=== PATIENT | female | born 1970 | race Caucasian/White ===

== ENCOUNTER 2024-05-12 22:20 | Observation (INO) | payer OTHER, SELFPAY ==
[2024-05-12 22:23] VITALS: BP 143/92; PULSE 90; RESP 16; TEMP 36.4; O2SAT 98; BMI 29.3
--- NOTE | 2024-05-12 22:40 | ED_ITS ---
HPI - General Adult General Time Seen by Provider: 22:40 <Julia Henriquez MD - Last Filed: 05/13/24 00:22> Date Seen: 05/12/24 <Julia Henriquez MD - Last Filed: 05/13/24 00:22> Chief complaint: Nausea/Vomiting <Julia Henriquez MD - Last Filed: 05/13/24 00:22> Stated complaint: vomited bright yellow <Julia Henriquez MD - Last Filed: 05/13/24 00:22> Time Seen by Provider: 05/12/24 22:40 <Julia Henriquez MD - Last Filed: 05/13/24 00:22> Source: patient and RN notes reviewed <Julia Henriquez MD - Last Filed: 05/13/24 00:22> Mode of arrival: ambulatory <Julia Henriquez MD - Last Filed: 05/13/24 00:22> Limitations: no limitations <Julia Henriquez MD - Last Filed: 05/13/24 00:22> History of Present Illness HPI narrative: This 54-year-old female is coming in with complaint of nausea and vomiting with dizziness since about 930 tonight. She admits that she has not really felt well, had nausea yesterday but no dizziness. The dizziness tonight is described as a spinning sensation. With that, she had nausea and vomiting, feels better she lies still and closes her eyes. She notes the last couple of days she has just felt really wiped out, no fevers, no specific symptoms other than what is already been stated. She has been napping 2-3 hours when she normally would only take a 1 hour nap. She did throw up once yesterday at work but not the context of dizziness. She has felt spinning vertigo sensation before but that was when she was drunk and is why she does not drink much at all. No headache, no tinnitus, no hearing changes. She notes no visual changes. She has no abdominal pain with this, no constipation or diarrhea. She is on no medications. She has had a tubal ligation, prior left ACL repair. She does smoke, minimal social alcohol use. She will sometimes smoke marijuana but no other illicit substances. She does not go to the doctor often, states she never gets sick. She thinks the last time she was in was probably 3 years ago. There is strong family history of vascular disease including ischemic heart disease and strokes. There is diabetes in the family as well. <Julia Henriquez MD - Last Filed: 05/13/24 00:22> Related Data Home medications: Home Medications ?Medication ?Instructions ?Recorded ?Confirmed No Known Home Medications 05/12/24 05/12/24 <Julia Henriquez MD - Last Filed: 05/13/24 00:22> Allergies/adverse reactions: Allergies Allergy/AdvReac Type Severity Reaction Status Date / Time Penicillins Allergy Hives Verified 05/12/24 22:28 <Julia Henriquez MD - Last Filed: 05/13/24 00:22> Review of Systems Status of ROS: Reports: 6 or more systems reviewed and unremarkable except as noted in History and below <Julia Henriquez MD - Last Filed: 05/13/24 00:22> Exam Const: Vital Signs, click to edit/add: Vital Signs - 24 hr 05/12/24 22:23 05/12/24 23:22 05/12/24 23:23 Temperature 97.6 F Pulse Rate [Pulse Oximeter] 90 74 Respiratory Rate 16 16 Blood Pressure [Ri ght Upper Arm] 143/92 H 136/83 Pulse Oximetry 98 93 92 Oxygen Delivery Me thod Room Air Room Air Patient is lying in the chair in exam room for, has emesis bag with her. Initially she kept her eyes closed but can open them. Pupils are equal round and reactive, extraocular muscles intact but there is definite right beating nystagmus. She has a positive [place] Hallpike maneuver, worse when turning her head to the right. Symmetrical facial function, speech is normal. Neck supple, no adenopathy. Lungs are clear, good air entry, no wheezing crackles. CV regular rate and rhythm, no murmur, normal S1-S2, no S3-S4. Abdomen is soft, nontender, nondistended, no organomegaly. She has no lower extremity edema, strength is 5/5 and symmetric. No dysmetria, no tremor. She has normal sensation throughout. <Julia Henriquez MD - Last Filed: 05/13/24 00:22> Vital Signs, click to edit/add: Vital Signs - 24 hr 05/12/24 22:23 05/12/24 23:22 05/12/24 23:23 Temperature 97.6 F Pulse Rate [Pulse Oximeter] 90 74 Respiratory Rate 16 16 Blood Pressure [Ri ght Upper Arm] 143/92 H 136/83 Pulse Oximetry 98 93 92 Oxygen Delivery Me thod Room Air Room Air <Xu Massey MD - Last Filed: 05/13/24 00:44> Documenting provider has reviewed patient's vital signs: yes <Julia Henriquez MD - Last Filed: 05/13/24 00:22> Course Course ED Course: Patient certainly sounds like she has vertigo tonight but this is complicating couple days of symptoms of not feeling well and vomiting yesterday outside of symptoms of dizziness or vertigo. Will give her IV fluids, 4 mg IV Zofran and 25 mg oral meclizine. Will run this by Neurology briefly. Will order noncontrast head CT to start. She will get a full complement of labs including troponin, will have an EKG done as well. I do not think that this represents central pathology but would like to talk to Neurology on this. <Julia Henriquez MD - Last Filed: 05/13/24 00:22> Reevaluation(s) Time of Reevaluation #2: 00:17 <Xu Massey MD - Last Filed: 05/13/24 00:44> Reevaluation #2: Accepted patient in sign-out from Dr. New. Patient with history of smoking, presents today with nausea vomiting as well as vertigo. Labs independently interpreted by me are reassuring with negative troponin, normal CBC, normal basic panel. Care was discussed with stroke neurology who recommends CT and CTA of the head which is performed, possible MRI in the morning. Patient is outside the window for thrombolytics at this point and unlikely to have large vessel occlusion. <Xu Massey MD - Last Filed: 05/13/24 00:44> Time of Reevaluation #3: 00:39 <Xu Massey MD - Last Filed: 05/13/24 00:44> Reevaluation #3: Reviewed radiology interpretation of CTA of the head neck which is negative, CT scan of the head independently interpreted by me negative for acute findings. Patient recheck, she continues to have some dizziness although he is feeling generally better. She still has nystagmus with right gaze. Patient will be admitted for further evaluation and treatment, MRI in the morning. Paged [facility] for admission. <Xu Massey MD - Last Filed: 05/13/24 00:44> Additional Reevaluation(s): 12:43 a.m. care discussed with Dr. Ramon, hospitalist for admission. <Xu Massey MD - Last Filed: 05/13/24 00:44> Consultations Consultation #1: Reviewed case with Stroke Neurology Dr. Ba. She does recommend that we proceed with CT angio of head neck as well as the CT. 00:16am: Dr. Ba has called back. She does not see any definitive stroke in the brainstem or the cerebellum as a cause of vertigo. She does see small patchy basal ganglia change in states she cannot rule out stroke, recommends 81 mg aspirin an MRI of her brain in the morning. We are still awaiting the radiology formal over-read of her head CT and the CT angiogram of her head neck. <Julia Henriquez MD - Last Filed: 05/13/24 00:22> Time: 10:57 <Julia Henriquez MD - Last Filed: 05/13/24 00:22> Vital Signs Vital signs: Initial Vital Signs Temperature 97.6 F 05/12/24 22:23 Temperature Source Temporal Artery Scan 05/12/24 22:23 Pulse Rate 90 05/12/24 22:23 Respiratory Rate 16 05/12/24 22:23 Blood Pressure 143/92 H 05/12/24 22:23 Blood Pressure Mean 109 H 05/12/24 22:23 Blood Pressure Position Sitting 05/12/24 22:23 Pulse Oximetry 98 05/12/24 22:23 Oxygen Delivery Method Room Air 05/12/24 22:23 Vital Signs Temperature 97.6 F 05/12/24 22:23 Pulse Rate 90 05/12/24 22:23 Respiratory Rate 16 05/12/24 22:23 Blood Pressure 143/92 H 05/12/24 22:23 Pulse Oximetry 98 05/12/24 22:23 Oxygen Delivery Method Room Air 05/12/24 22:23 Temperature 97.6 F 05/12/24 22:23 Pulse Rate 74 05/12/24 23:23 Respiratory Rate 16 05/12/24 23:23 Blood Pressure 136/83 05/12/24 23:23 Pulse Oximetry 92 05/12/24 23:23 Oxygen Delivery Method Room Air 05/12/24 23:23 <Julia Henriquez MD - Last Filed: 05/13/24 00:22> Initial Vital Signs Temperature 97.6 F 05/12/24 22:23 Temperature Source Temporal Artery Scan 05/12/24 22:23 Pulse Rate 90 05/12/24 22:23 Respiratory Rate 16 05/12/24 22:23 Blood Pressure 143/92 H 05/12/24 22:23 Blood Pressure Mean 109 H 05/12/24 22:23 Blood Pressure Position Sitting 05/12/24 22:23 Pulse Oximetry 98 05/12/24 22:23 Oxygen Delivery Method Room Air 05/12/24 22:23 Vital Signs Temperature 97.6 F 05/12/24 22:23 Pulse Rate 90 05/12/24 22:23 Respiratory Rate 16 05/12/24 22:23 Blood Pressure 143/92 H 05/12/24 22:23 Pulse Oximetry 98 05/12/24 22:23 Oxygen Delivery Method Room Air 05/12/24 22:23 Temperature 97.6 F 05/12/24 22:23 Pulse Rate 74 05/12/24 23:23 Respiratory Rate 16 05/12/24 23:23 Blood Pressure 136/83 05/12/24 23:23 Pulse Oximetry 92 05/12/24 23:23 Oxygen Delivery Method Room Air 05/12/24 23:23 <Xu Massey MD - Last Filed: 05/13/24 00:44> Medications Administered Medications: Generic Name Dose Route Start Last Admin Trade Name Freq PRN Reason Stop Dose Admin Sodium Chloride 1,000 mls @ 500 mls/hr 05/12/24 22:48 05/13/24 00:11 0.9 % Sodium Chloride 1000 Ml IV 05/13/24 00:47 Infused .Q2H APRIL Infusion Discontinued Medications Generic Name Dose Route Start Last Admin Trade Name Freq PRN Reason Stop Dose Admin Meclizine HCl 25 mg 05/12/24 22:47 05/12/24 23:05 Meclizine Hcl 25 Mg Tablet PO 05/12/24 22:48 25 mg ONCE ONE Administration Ondansetron HCl 4 mg 05/12/24 22:47 05/12/24 23:06 Ondansetron 2 Mg/Ml Inj IVP 05/12/24 22:48 4 mg ONCE ONE Administration <Julia Henriquez MD - Last Filed: 05/13/24 00:22> Generic Name Dose Route Start Last Admin Trade Name Freq PRN Reason Stop Dose Admin Sodium Chloride 1,000 mls @ 500 mls/hr 05/12/24 22:48 05/13/24 00:11 0.9 % Sodium Chloride 1000 Ml IV 05/13/24 00:47 Infused .Q2H APRIL Infusion Discontinued Medications Generic Name Dose Route Start Last Admin Trade Name Freq PRN Reason Stop Dose Admin Meclizine HCl 25 mg 05/12/24 22:47 05/12/24 23:05 Meclizine Hcl 25 Mg Tablet PO 05/12/24 22:48 25 mg ONCE ONE Administration Ondansetron HCl 4 mg 05/12/24 22:47 05/12/24 23:06 Ondansetron 2 Mg/Ml Inj IVP 05/12/24 22:48 4 mg ONCE ONE Administration <Xu Massey MD - Last Filed: 05/13/24 00:44> Medical Decision Making Lab Data Labs: Lab Results 05/12/24 05/13/24 Range/Units 23:00 00:36 WBC 8.55 (4.50-11.00) K/uL RBC 5.35 H (4.00-5.20) m/uL Hgb 15.8 (12.0-16.0) gm/dL Hct 47.4 (33.0-51.0) % MCV 89 (80-100) fL MCH 30 (26-34) pg MCHC 33 (32-36) gm/dL RDW Coeff of Gila 13.0 (11.5-15.5) % Plt Count 249 (140-440) K/uL Neut % (Auto) 61.9 (42.0-72.0) % Lymph % (Auto) 27.3 (20-44) % [place] % (Auto) 6.7 (0.0-11.0) % Eos % (Auto) 2.8 (0.0-7.0) % Baso % (Auto) 0.5 (0.0-3.0) % Neut # (Auto) 5.30 (1.7-7.0) K/uL Lymph # (Auto) 2.33 (0.90-2.90) K/uL [place] # (Auto) 0.60 (0.00-0.90) K/UL Eos # (Auto) 0.24 (0.00-0.50) K/uL Baso # (Auto) 0.04 (0.00-0.30) K/uL Abs Immat Gran (auto) 0.07 (0.00-0.30) K/uL Imm/Tot Granulo (auto) 0.8 % Sodium 137 (135-149) mmol/L Potassium 3.7 (3.6-5.1) mmol/L Chloride 103 (96-114) mmol/L Carbon Dioxide 25 (20-32) mmol/L Anion Gap 9 (7-15) mEq/L BUN 25 (7-30) mg/dL Creatinine 0.6 (0.5-1.5) mg/dL Estimated Creat Clear 76.10 Estimated GFR 106 ml/min Glucose 145 H (60-115) mg/dL Lactate 1.4 (0.5-1.9) mmol/L Calcium 9.6 (8.4-10.6) mg/dL Magnesium 2.0 (1.5-2.6) mg/dL Total Bilirubin 0.5 (0.1-1.5) mg/dL AST 16 (12-35) U/L ALT 14 (4-35) U/L Alkaline Phosphatase 66 (40-150) U/L Troponin I < 0.01 L (0.01-0.04) ng/mL C-Reactive Protein < 0.5 L (0.5-1.0) mg/dL NT-Pro-B Natriuret Pep 20 pg/mL Total Protein 7.6 (6.0-8.3) g/dL Albumin 4.6 (3.3-5.0) g/dL Lipase 121 (23-300) U/L Lab Acknowledgement Test Added <Julia Henriquez MD - Last Filed: 05/13/24 00:22> Lab Results 05/12/24 05/13/24 Range/Units 23:00 00:36 WBC 8.55 (4.50-11.00) K/uL RBC 5.35 H (4.00-5.20) m/uL Hgb 15.8 (12.0-16.0) gm/dL Hct 47.4 (33.0-51.0) % MCV 89 (80-100) fL MCH 30 (26-34) pg MCHC 33 (32-36) gm/dL RDW Coeff of Gila 13.0 (11.5-15.5) % Plt Count 249 (140-440) K/uL Neut % (Auto) 61.9 (42.0-72.0) % Lymph % (Auto) 27.3 (20-44) % [place] % (Auto) 6.7 (0.0-11.0) % Eos % (Auto) 2.8 (0.0-7.0) % Baso % (Auto) 0.5 (0.0-3.0) % Neut # (Auto) 5.30 (1.7-7.0) K/uL Lymph # (Auto) 2.33 (0.90-2.90) K/uL [place] # (Auto) 0.60 (0.00-0.90) K/UL Eos # (Auto) 0.24 (0.00-0.50) K/uL Baso # (Auto) 0.04 (0.00-0.30) K/uL Abs Immat Gran (auto) 0.07 (0.00-0.30) K/uL Imm/Tot Granulo (auto) 0.8 % Sodium 137 (135-149) mmol/L Potassium 3.7 (3.6-5.1) mmol/L Chloride 103 (96-114) mmol/L Carbon Dioxide 25 (20-32) mmol/L Anion Gap 9 (7-15) mEq/L BUN 25 (7-30) mg/dL Creatinine 0.6 (0.5-1.5) mg/dL Estimated Creat Clear 76.10 Estimated GFR 106 ml/min Glucose 145 H (60-115) mg/dL Lactate 1.4 (0.5-1.9) mmol/L Calcium 9.6 (8.4-10.6) mg/dL Magnesium 2.0 (1.5-2.6) mg/dL Total Bilirubin 0.5 (0.1-1.5) mg/dL AST 16 (12-35) U/L ALT 14 (4-35) U/L Alkaline Phosphatase 66 (40-150) U/L Troponin I < 0.01 L (0.01-0.04) ng/mL C-Reactive Protein < 0.5 L (0.5-1.0) mg/dL NT-Pro-B Natriuret Pep 20 pg/mL Total Protein 7.6 (6.0-8.3) g/dL Albumin 4.6 (3.3-5.0) g/dL Lipase 121 (23-300) U/L Lab Acknowledgement Test Added <Xu Massey MD - Last Filed: 05/13/24 00:44> ECG Data Attestation: I personally reviewed and interpreted this ECG as follows: (Normal sinus rhythm, 72 beats per minute. No ischemic change, QT corrected 444 mil liseconds.) <Julia Henriquez MD - Last Filed: 05/13/24 00:22> Prior ECG tracings: not available for review <Julia Henriquez MD - Last Filed: 05/13/24 00:22> Discharge Plan Discharge Clinical Impression: Vertigo, Smokes cigarettes <Julia Henriquez MD - Last Filed: 05/13/24 00:22> Patient Disposition: Admitted As Observation <Julia Henriquez MD - Last Filed: 05/13/24 00:22>
--- NOTE | 2024-05-12 22:47 | CRLHL7_ITS ---
For Patients: As a result of the Century Cures Act, medical imaging exams and procedure reports are released immediately into your electronic medical record. You may view this report before your referring provider. If you have questions, please contact your health care provider. Indication: Vertigo Technique: Noncontrast CT through the head with multiplanar reformats Comparison: None Findings: Brain: No acute hemorrhage. No acute infarct. No significant mass effect or midline shift. No gross evidence of a mass lesion or cerebral edema. 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 Mild chronic microvascular ischemic disease. Ventricles: No acute abnormality appreciated. Orbits, sinuses, mastoids: No acute abnormality appreciated. Calvarium and soft tissues: No acute abnormality appreciated. Impression: No acute abnormality appreciated. Please note that all CT scans at this facility use dose modulation, iterative reconstruction, and/or weight-based dosing when appropriate to reduce radiation dose to as low as reasonably achievable. Dictated by Neville Todd MD @ 05/13/2024 12:36:38 AM (Electronically Signed)
--- NOTE | 2024-05-12 22:59 | CRLHL7_ITS ---
For Patients: As a result of the Century Cures Act, medical imaging exams and procedure reports are released immediately into your electronic medical record. You may view this report before your referring provider. If you have questions, please contact your health care provider. DATE: 05/13/2024 CLINICAL HISTORY: Patient with vertigo. TECHNIQUE: Standard helical CT image acquisition of the neck up to the skull base after bolus intravenous contrast enhancement. 2D and 3D MIP images for post-processing were performed and interpreted on an independent workstation and 3D images were permanently archived. COMPARISON: CT same day. FINDINGS: The origins of the great vessels from the aortic arch are patent. The origin of the right vertebral artery is patent. The origin of the left vertebral artery is patent. The common carotid arteries are patent. There is no stenosis at the origin of the right internal carotid artery. There is no stenosis at the origin of the left internal carotid artery. The rest of the cervical segments of the internal carotid arteries are patent up to the skull base. The vertebral arteries are codominant. The cervical segments of the vertebral arteries are patent up to the skull base. The visualized lung apices are unremarkable. The thyroid gland is unremarkable. The soft tissues of the neck are unremarkable. There are degenerative changes in the cervical spine. IMPRESSION: Patent cervical vasculature. Please note that all CT scans at this facility use dose modulation, iterative reconstruction, and/or weight-based dosing when appropriate to reduce radiation dose to as low as reasonably achievable. Dictated by Kiersten Becerril MD @ 05/13/2024 2:17:27 PM (Electronically Signed)
--- NOTE | 2024-05-12 22:59 | CRLHL7_ITS ---
For Patients: As a result of the Century Cures Act, medical imaging exams and procedure reports are released immediately into your electronic medical record. You may view this report before your referring provider. If you have questions, please contact your health care provider. DATE: 05/12/2024 CLINICAL HISTORY: Patient with vertigo. TECHNIQUE: Standard helical CT image acquisition through the intracranial circulation following intravenous administration of contrast material with bolus tracking. 2D and 3D MIP images for post-processing were performed and interpreted on an independent workstation and 3D images were permanently archived. COMPARISON: CT same day. FINDINGS: There is no large vessel occlusion. 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 The right internal carotid artery is normal. The right middle cerebral artery and its branches are normal. The right anterior cerebral artery and its branches are normal. The left middle cerebral artery and its branches are normal. The left anterior cerebral artery and its branches are normal. The anterior communicating artery is well visualized and appears normal. The right vertebral artery and PICA are normal. The left vertebral artery and PICA are normal. The vertebral arteries are codominant. The basilar artery is patent and appears normal. The right posterior cerebral artery is normal. The left posterior cerebral artery is normal. The visualized venous structures are patent. IMPRESSION: 1. No large vessel occlusion. 2. 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 Telehealth consultation with [facility]`s Neurointerventional team for enrollment in our long-term brain aneurysm surveillance program can be arranged by calling . Kiersten Becerril M.D. Neurointerventional Radiologist [facility] Pager: Office/Appointments: [facility]: [email or web address] Please note that all CT scans at this facility use dose modulation, iterative reconstruction, and/or weight-based dosing when appropriate to reduce radiation dose to as low as reasonably achievable. Dictated by Kiersten Becerril MD @ 05/13/2024 2:24:00 PM (Electronically Signed)
[2024-05-12] MEDS: 0.9 % SODIUM CHLORIDE 1000 ml 1,000 ML 500 ML IV (23:00)
[2024-05-12] MEDS: MECLIZINE HCL 25 MG TABLET PO (23:05)
[2024-05-12] MEDS: ONDANSETRON 2 MG/ML inj 4 MG IVP (23:06)
[2024-05-12 23:07] LABS: Lactate* 1.4 mmol/L (0.5-1.9)
[2024-05-12 23:14] LABS: Basophils Absolute Auto 0.04 K/uL (0.00-0.30); Basophils Percent Auto 0.5 % (0.0-3.0); Eosinophils Absolute Auto 0.24 K/uL (0.00-0.50); Eosinophils Percent Auto 2.8 % (0.0-7.0); Hematocrit 47.4 % (33.0-51.0); Hemoglobin* 15.8 gm/dL (12.0-16.0); Immature Granulocytes Abs Auto 0.07 K/uL (0.00-0.30); Immature Granulocytes Pct Auto 0.8 %; Lymphocytes Absolute Auto 2.33 K/uL (0.90-2.90); Lymphocytes Percent Auto 27.3 % (20-44); Mean Corpuscular HGB Conc 33 gm/dL (32-36); Mean Corpuscular Hemoglobin 30 pg (26-34); Mean Corpuscular Volume 89 fL (80-100); Monocytes Percent Auto 6.7 % (0.0-11.0); Neutrophils Percent Auto 61.9 % (42.0-72.0); Platelet Count* 249 K/uL (140-440); Red Blood Count 5.35 m/uL (4.00-5.20); White Blood Count* 8.55 K/uL (4.50-11.00)
[2024-05-12 23:16] LABS: Slide Review Reflex No
[2024-05-12 23:22] VITALS: O2SAT 93
[2024-05-12 23:23] VITALS: BP 136/83; PULSE 74; RESP 16; O2SAT 92
[2024-05-12 23:30] LABS: Albumin* 4.6 g/dL (3.3-5.0); Chloride* 103 mmol/L (96-114)
[2024-05-12 23:31] LABS: Potassium* 3.7 mmol/L (3.6-5.1); Sodium* 137 mmol/L (135-149)
[2024-05-12 23:33] LABS: Bilirubin Total* 0.5 mg/dL (0.1-1.5); Creatinine* 0.6 mg/dL (0.5-1.5); Estimated Glomerular Filt Rate 106 ml/min
[2024-05-12 23:34] LABS: Alanine Aminotransferase* 14 U/L (4-35); Alkaline Phosphatase* 66 U/L (40-150); Anion Gap 9 mEq/L (7-15); Aspartate Amino Transferase* 16 U/L (12-35); Blood Urea Nitrogen* 25 mg/dL (7-30); Calcium* 9.6 mg/dL (8.4-10.6); Carbon Dioxide* 25 mmol/L (20-32); Glucose* 145 mg/dL (60-115); Lipase* 121 U/L (23-300); Total Protein* 7.6 g/dL (6.0-8.3)
[2024-05-12 23:38] LABS: C Reactive Protein* < 0.5 mg/dL (0.5-1.0)
[2024-05-12 23:45] LABS: NT Pro B Type NatriureticPept* 20 pg/mL; Troponin I* < 0.01 ng/mL (0.01-0.04)
[2024-05-13 01:03] VITALS: BP 152/87; PULSE 75; RESP 18; TEMP 35.8; O2SAT 98; BMI 25.8
--- NOTE | 2024-05-13 01:51 | W.PM.TELEH&P ---
Telehealth- H&P: HPI History of Present Illness Time Seen by Provider: 01:12 Date Seen: 05/13/24 Chief complaint: woozy and vomiting Narrative: Hilda Johnson is seen as an Interactive Telehealth visit. Hilda Johnson is a 54 year old female with past history remarkable for heavy smoking history who presented to the emergency room tonight after waking from a nap and developing vertigo nausea and vomiting. She vomited about 3 times of bright yellow. This was painless. She has been at her baseline state of health until 2 nights ago while at work she felt woozy and had an episode of vomiting and was sent home. She comments that she has been sleeping more the last 3 days during her naps which are usually an hour but of late they have been lasting 2 to 3 hours. She states that the wooziness that she experienced the other night was not as severe as what she experienced tonight. She has had no prior episodes. She smokes about 1-1/2 to 2 packs of cigarettes a day since she was age 9. She denies any headache or focal weakness. She endorses that it is somewhat better when she is laying in bed and worse when she is up. She is being admitted for concerns for the possibility of central vertigo versus peripheral vertigo. Stroke consult was done in the ER and stroke neurologist recommended an MRI in the a.m. Past medical history: Long history of tobaccoism otherwise unremarkable Past surgical history: Prior knee surgery 3 para 3 fm hixtory: father stroke and in his 60's mother mini strokes Review of Systems Status of ROS: Reports: 10 or more systems reviewed and unremarkable except as noted in History and below Meds Home Medications and Allergies Home Medications ?Medication ?Instructions ?Recorded ?Confirmed ?Type No Known Home Medications 05/12/24 05/12/24 History Allergies Allergy/AdvReac Type Severity Reaction Status Date / Time Penicillins Allergy Hives Verified 05/12/24 22:28 Exam Narrative Exam Narrative: Physical Exam General: Awake alert oriented pleasant cooperative resting comfortably in the hospital bed. Vital signs reviewed HEENT: Atraumatic, sclera nonicteric, smile is symmetric, poor dentition, mucous membranes moist, extraocular muscles are intact with no nystagmus currently. Neck: Supple no carotid bruits, no JVD Cor: Regular rate rhythm without murmurs, soft 2 out of 6 holosystolic murmur heard along the left lower sternal border without radiation Lungs: Good breath sounds no wheezes Abdomen: Soft nontender Extremities: Good distal perfusion Neurologic: Cranial nerves II to XII intact, strength upper and lower extremities 5 out of 5, no nystagmus with extraocular eye muscles, szlxlv-[id number] intact, btrr-bl-npst intact, sensation to light touch intact, gait not tested Const Vital Signs, click to edit/add: Vital Signs - 24 hr 05/12/24 22:23 05/12/24 23:22 05/12/24 23:23 Temperature 97.6 F Pulse Rate [Pulse Oximeter] 90 74 Respiratory Rate 16 16 Blood Pressure [Right Upper Arm] 143/92 H 136/83 Pulse Oximetry 98 93 92 Oxygen Delivery Method Room Air Room Air Hospitalist - H&P: Result Labs Labs: Short CBC Laboratory Results - last 24 hr 05/12/24 05/13/24 23:00 00:36 WBC 8.55 RBC 5.35 H Hgb 15.8 Hct 47.4 MCV 89 MCH 30 MCHC 33 RDW Coeff of Gila 13.0 Plt Count 249 Neut % (Auto) 61.9 Lymph % (Auto) 27.3 [place] % (Auto) 6.7 Eos % (Auto) 2.8 Baso % (Auto) 0.5 Neut # (Auto) 5.30 Lymph # (Auto) 2.33 [place] # (Auto) 0.60 Eos # (Auto) 0.24 Baso # (Auto) 0.04 Abs Immat Gran (auto) 0.07 Imm/Tot Granulo (auto) 0.8 Sodium 137 Potassium 3.7 Chloride 103 Carbon Dioxide 25 Anion Gap 9 BUN 25 Creatinine 0.6 Estimated Creat Clear 76.10 Estimated GFR 106 Glucose 145 H Lactate 1.4 Calcium 9.6 Magnesium 2.0 Total Bilirubin 0.5 AST 16 ALT 14 Alkaline Phosphatase 66 Troponin I < 0.01 L C-Reactive Protein < 0.5 L NT-Pro-B Natriuret Pep 20 Total Protein 7.6 Albumin 4.6 Lipase 121 TSH 1.500 Lab Acknowledgement Test Added Imaging CT scan - head: Attestation: I have reviewed the pertinent imaging results. Radiologist's impression: Unenhanced head ct and cta head and neck interpreted as negative for acute disease Assessment and Plan Assessment and plan (1) Vertigo: Status: Acute (2) Nausea and vomiting: Status: Acute (3) Smokes cigarettes: Status: Acute Plan 54-year-old woman with long history of tobaccoism who presents with nausea vomiting and vertigo tonight. She had similar events but not as intense 2 nights ago. Neurologic exam is benign no current nystagmus. Head imaging CT unenhanced and CTA showed no acute disease. Symptoms are worse when she is up and better when she is laying down. I suspect the disease is most likely benign positional vertigo however agree with the plan to keep her overnight observation and prophylaxis with aspirin and get an MRI in the morning to rule out the possibility of central vertigo. 1: Benign positional vertigo 2: Nausea and vomiting 3. History of tobaccoism Plan 1.overnight observation 2. Baby aspirin daily till ruled out 3. MRI in the morning 4. Ondansetron as needed if needed for nausea 5. Nicotine patch 6. Encourage and support smoking cessation 7. Long conversation with the patient about CODE STATUS and she is adamant she wants to be DN Telehealth: Statement Statement Telehealth Visit: Today's History and Physical is provided via interactive telehealth by Eron Ramon MD.? Patient is located at [facility].? Provider is located at [facility].? Nursing staff assisted with the patient's exam. The visit being done today meets criteria for a telehealth visit and the patient or patient?s parent/guardian is aware the visit is a telehealth visit. Camera Start Time: 01:12 Camera End Time: 01:32
[2024-05-13 02:13] VITALS: PULSE 69
--- NOTE | 2024-05-13 02:17 | CRLHL7_ITS ---
For Patients: As a result of the Cures Act, medical imaging exams and procedure reports are released immediately into your electronic medical record. You may view this report before your referring provider. If you have questions, please contact your health care provider. Indication: Vertigo Technique: Multiplanar, multisequence MRI of the brain obtained without contrast. Comparison: Same-day CT head Findings: No evidence for recent hemorrhage or infarct. No midline shift, hydrocephalus or herniation. Chronic lacunar infarct at the right basal ganglia. Scattered FLAIR hyperintense foci throughout the supratentorial white matter, typical of chronic microangiopathy. No suspicious susceptibility. Unremarkable midline structures. Preserved major expected intracranial flow voids. Unremarkable bone marrow signal. No obstructive paranasal sinus disease or significant mastoid effusion. Unremarkable orbits. Impression: 1. No evidence of acute intracranial abnormality. 2. Chronic right basal ganglia lacunar infarct and mild chronic microangiopathy changes. Dictated by Alejandra Johnson MD @ 05/13/2024 11:55:51 AM (Electronically Signed)
--- NOTE | 2024-05-13 05:57 | PC.NURSE ---
End of shift [id number]: Admitted to unit at 0100 with nausea/vomiting and dizziness. Patient reports intermittent nausea and vomiting x 2 days and new onset vertigo which caused emesis. Currently denies any nausea or vomiting but does report vertigo when going from laying to sitting, patient able to stop vertigo when laying still. Neuro assessment completed and intact. Denies any pain or SOB. Independent with transfers and ambulation.
[2024-05-13 07:26] VITALS: BP 132/87; PULSE 73; RESP 20; TEMP 36.4; O2SAT 95
[2024-05-13] MEDS: SODIUM CHLORIDE 0.9 % (FLUSH) 10 ML SYRINGE 5 ML IVF (08:41)
[2024-05-13 09:03] VITALS: PULSE 65
[2024-05-13 11:00] VITALS: BP 128/82; PULSE 74; RESP 20; TEMP 36.6; O2SAT 96
--- NOTE | 2024-05-13 12:44 | PM.DS1 ---
DS: Providers Provider Date Seen: 05/13/24 Date of admission: 05/13/24 00:57 Primary care physician: Morelia Yepez PA-C Admitting Clinician: Eron Ramon MD Attending Physician on discharge: Antonino Lomas MD Date of Discharge: 05/13/24 DS: Diagnosis Discharge Diagnosis (1) Nausea and vomiting: Status: Acute Problem details: Episodes of vomiting May 11 while at work and May 12 associated with vertigo. Now resolved in eating normally. (2) Vertigo: Status: Acute Problem details: Suspect episode of benign vertigo. Glenmont-Hallpike and Otolith repositioning maneuvers produced no symptoms and no benefit. (3) Smokes cigarettes: Status: Acute Problem details: Strongly urged smoking cessation to prevent future complications of stroke, cancer, heart disease. (4) Ataxia: Status: Acute Problem details: Patient gives a history of longstanding poor balance. She uses furniture and ruth schmitz to help with balance at home. Physical therapy here notes that she has poor balance. Referred to outpatient therapy. (5) Stroke: Status: Acute Problem details: MRI from 05/13/2020 for shows chronic right basal ganglia lacunar infarct Aspirin 81 mg, rosuvastatin, stop smoking, outpatient follow-up, DS: Summary Hospital Course Hospital Course: 54-year-old female admitted to the hospital with an episode of vertigo and vomiting the evening prior to admission. She had also had an episode of vomiting the day before that fall at work. She had no other symptoms of illness. She had a frontal headache yesterday which has resolved. No history of chronic headaches or migraines. No change in hearing or unilateral hearing loss or abnormal noise in her ears. No visual disturbance, focal numbness or weakness, fever, cough, chest pain, palpitations, abdominal pain, diarrhea, melena or hematochezia. Emesis was clear yellow fluid without blood or coffee-ground appearance. Patient also reports longstanding history of poor balance. For more than a year she has been holding onto schmitz and furniture when she walks. She reports that she has otherwise been feeling well except for this last day. Patient reports otherwise being healthy. [facility] records indicate a history of mental health problems and dyslipidemia. Patient is currently not a undergoing treatment for these problems. Patient has had CT head, CTA head and neck, MRI of her brain showing an old right basal ganglia stroke and small vessel ischemic changes on MRI but no other significant intracranial abnormalities and no large vessel occlusions/stenosis. Physical therapy evaluation showed that she is unable to stand on 1 leg and has some poor balance. Status at Discharge Functional status at discharge: independent ambulation Overall status at discharge: patient is progressing back to baseline Time Spent with Patient Time attestation: Total time spent providing and/or coordinating discharge services: 70 minutes Time spent: Greater than 30 minutes Exam Narrative: Exam Narrative: She is alert and appears in no distress. She gives her own history. Speech is fluent. Cranial nerves 2-12 intact. Neck is supple without mass or adenopathy. Palpation of her head is nontender. Respirations are clear to auscultation. Cardiovascular: S1, S2, regular rate and rhythm. No murmur gallop or rub. Abdomen: Bowel sounds active. Abdomen is soft without tenderness or mass. She has intact strength in all 4 extremities at 5/5. Intact peripheral pulses. No rash. Cxkdyi-kens-svkyza and heel-murrieta are normal. Const: Vital Signs, click to edit/add: Vital Signs - 24 hr 05/12/24 22:23 05/12/24 23:22 05/12/24 23:23 Temperature 97.6 F Pulse Rate Pulse Rate [Pulse Oximeter] 90 74 Respiratory Rate 16 16 Blood Pressure [Ri ght Arm] Blood Pressure [Ri ght Upper Arm] 143/92 H 136/83 Pulse Oximetry 98 93 [facility] Room Air 05/13/24 01:03 05/13/24 01:03 05/13/24 02:13 Temperature 96.4 F L Pulse Rate 69 Pulse Rate [Pulse Oximeter] 75 Respiratory Rate 18 18 Blood Pressure [Ri ght Arm] 152/87 H Blood Pressure [Ri ght Upper Arm] Pulse Oximetry 98 98 Oxygen Delivery Fl thod Room Air Room Air 05/13/24 07:26 05/13/24 07:26 05/13/24 09:03 Temperature 97.5 F L Pulse Rate 65 Pulse Rate [Pulse Oximeter] 73 73 Respiratory Rate 20 20 Blood Pressure [Ri ght Arm] 132/87 Blood Pressure [Ri ght Upper Arm] Pulse Oximetry 95 [facility] 05/13/24 11:00 Temperature 98 F Pulse Rate Pulse Rate [Pulse Oximeter] 74 Respiratory Rate 20 Blood Pressure [Ri ght Arm] 128/82 Blood Pressure [Ri ght Upper Arm] Pulse Oximetry 96 Oxygen Delivery Me thod Room Air Documenting provider has reviewed patient's vital signs: yes DS: Data Data Completed and Pending Labs on day of discharge: Labs from last 24 hours 05/13/24 05/12/24 00:36 23:00 WBC 8.55 RBC 5.35 H Hgb 15.8 Hct 47.4 MCV 89 MCH 30 MCHC 33 RDW Coeff of Gila 13.0 Plt Count 249 Neut % (Auto) 61.9 Lymph % (Auto) 27.3 Weber % (Auto) 6.7 Eos % (Auto) 2.8 Baso % (Auto) 0.5 Neut # (Auto) 5.30 Lymph # (Auto) 2.33 Weber # (Auto) 0.60 Eos # (Auto) 0.24 Baso # (Auto) 0.04 Abs Immat Gran (auto) 0.07 Imm/Tot Granulo (auto) 0.8 Sodium 137 Potassium 3.7 Chloride 103 Carbon Dioxide 25 Anion Gap 9 BUN 25 Creatinine 0.6 Estimated Creat Clear 76.10 Estimated GFR 106 Glucose 145 H Lactate 1.4 Calcium 9.6 Magnesium 2.0 Total Bilirubin 0.5 AST 16 ALT 14 Alkaline Phosphatase 66 Troponin I < 0.01 L C-Reactive Protein < 0.5 L NT-Pro-B Natriuret Pep 20 Total Protein 7.6 Albumin 4.6 Lipase 121 TSH 1.500 Lab Acknowledgement Test Added Imaging MRI - head: Radiologist's impression: Indication: Vertigo Technique: Multiplanar, multisequence MRI of the brain obtained without contrast. Comparison: Same-day CT head Findings: No evidence for recent hemorrhage or infarct. No midline shift, hydrocephalus or herniation. Chronic lacunar infarct at the right basal ganglia. Scattered FLAIR hyperintense foci throughout the supratentorial white matter, typical of chronic microangiopathy. No suspicious susceptibility. Unremarkable midline structures. Preserved major expected intracranial flow voids. Unremarkable bone marrow signal. No obstructive paranasal sinus disease or significant mastoid effusion. Unremarkable orbits. Impression: 1. No evidence of acute intracranial abnormality. 2. Chronic right basal ganglia lacunar infarct and mild chronic microangiopathy changes. Discharge Plan Discharge Disposition: Home, Self-Care Date of Admission: 05/13/24 00:57 Attending Provider on Discharge: Jensen Lomas Primary Care Provider: Morelia Yepez Condition: Improved Anticipated Discharge Date/Time: 05/13/24 18:00 Discharge Medications: New rosuvastatin 20 mg tablet 20 mg PO DAILY Qty: 30 2RF aspirin 81 mg tablet,delayed release (DR/EC) 81 mg PO DAILY Qty: 100 2RF ondansetron 8 mg tablet,disintegrating 8 mg PO Q8H PRNQty: 15 0RF Discharge Orders: Discharge Order (Routine); Ordered 05/13/24 Ordered By: Jensen Lomas Additional Instructions: Outpatient physical therapy evaluation and treatment. Activity Level: Activity as Tolerated Discharge Diet: Heart Healthy (2 gm sodium, low fat) Follow Up Appointments: Morelia Yepez, PA-C [Primary Care Provider] - (Follow-up in 1 week) Forms: Cupple Info Instructions
[2024-05-13 14:02] LABS: Cholesterol* 308 mg/dL (90-199); HDL Cholesterol* 42 mg/dL (>=50); LDL Cholesterol Calculated 213 mg/dL (<100); Triglycerides* 267 mg/dL (40-149)
[2024-05-13 15:00] VITALS: BP 138/86; PULSE 81; RESP 20; TEMP 36.6; O2SAT 97
--- NOTE | 2024-05-13 15:16 | PC.NURSE ---
End of Shift: Patient pleasant and cooperative. Patient vitally stable, lungs clear, BS WNL, IV SL and intact. Patient denies pain and nausea, but does report dizziness with movement, she explains she can not focus her eyes. Patient independent in room. Patient tolerating regular diet but did have one emesis after working with therapy, and taking a bite of her husbands guyanese santana, 600ml. Patient urinating well, no BM. Patient has only had breakfast.
--- NOTE | 2024-05-13 18:21 | PC.NURSE ---
Patient ate 50% of her meal at about 1600. Did so without nausea. Up ambulating in the room without dizziness. Pt still states that she feels a little unsteady when up, however feels ready for discharge. IV removed from right arm. Tele taken off. discharge instructions given to patient and . All questions were answered and forms were signed. Pt escorted to front entrance via wheelchair by nursing staff.
== END 2024-05-13 18:08 | disposition home or self-care (01) ==
LOC: ED 05-13 00:40 → MEDSURG 05-13 00:58
PROVIDERS: Family Medicine; Admitting Provider Internal Medicine; Emergency Provider Family Medicine; PCP Physician Assistant Medical; Visit Provider Internal Medicine
DX: R42 Dizziness and giddiness (principal); R11.10 Vomiting, unspecified; R11.0 Nausea; F17.210 Nicotine dependence, cigarettes, uncomplicated; Z86.73 Personal history of transient ischemic attack (TIA), and cerebral infarction without residual deficits; R51.9 Headache, unspecified; E78.5 Hyperlipidemia, unspecified; F10.90 Alcohol use, unspecified, uncomplicated; Z82.3 Family history of stroke; Z82.49 Family history of ischemic heart disease and other diseases of the circulatory system
CPT/HCPCS: 36415; 70450; 70496; 70498; 70551; 80053; 80061; 83036; 83605; 83690; 83735; 83880; 84443; 84484; 85025; 86140; 93005; 94761; 96361; 96374; 97112; 97161; 97165; 99285; G0378; A9270; J2405; J7030; Q9967

== ENCOUNTER 2024-05-28 12:43 | Emergency (ER) | payer OTHER, SELFPAY ==
--- NOTE | 2024-05-28 12:49 | ED_ITS ---
HPI - General Adult General Time Seen by Provider: 13:01 Date Seen: 05/28/24 Chief complaint: Abdominal Pain Stated complaint: RT sided sharp abdominal pain Time Seen by Provider: 05/28/24 12:49 Source: patient, family, RN notes reviewed and old records reviewed Mode of arrival: ambulatory Limitations: no limitations History of Present Illness HPI narrative: This 54-year-old female is coming in with right-sided abdominal pain. Started yesterday morning, she awoke with it. It is painful with movement. No trauma. She has not had any nausea vomiting or diarrhea, last normal bowel movement was yesterday. She did eat some peanut butter cookies this morning about 10:00 a.m., has not noticed any change her appetite and no change with eating. She has no urinary symptoms. Her bowel movement was normal yesterday. Her only abdominal surgery was a tubal ligation. She has no history of bowel obstruction. She was recently in with peripheral vertigo but was diagnosed with a prior basal ganglia CVA based on MRI. She has not had any recent medical care prior to that, states she has a known growth on her uterus that was supposed to be removed. She was also supposed to have a colonoscopy. She states that she just went [facility] in canceled those procedures. She is wondering if this has something to do with a growth on her uterus. She denies any postmenopausal vaginal bleeding. She is never had a colonoscopy before. She denies any blood in her stools historically or currently. Related Data Previous Rx's ?Medication ?Instructions ?Recorded aspirin 81 mg tablet,delayed 81 mg PO DAILY #100 tabs 05/13/24 release ondansetron 8 mg disintegrating 8 mg PO Q8H PRN #15 tabs 05/13/24 tablet rosuvastatin 20 mg tablet 20 mg PO DAILY #30 tabs 05/13/24 Allergies Allergy/AdvReac Type Severity Reaction Status Date / Time Penicillins Allergy Hives Verified 05/12/24 22:28 Review of Systems Status of ROS: Reports: 6 or more systems reviewed and unremarkable except as noted in History and below [facility] Medical History Uterine fibroid ?D25.9 - Leiomyoma of uterus, unspecified (ICD-10) Ataxia ?R27.0 - Ataxia, unspecified (ICD-10) Stroke ?I63.9 - Cerebral infarction, unspecified (ICD-10) Surgical History Hx of arthroscopic knee surgery ?Z98.890 - Other specified postprocedural states (ICD-10) H/O tubal ligation ?Z98.51 - Tubal ligation status (ICD-10) Social History What is your current living situation?: I presently have a place to live Problems where you live: no known problems Problems where you live details: NA In the past 12 months, utilities in danger of being shut off: no In past 12 months, lack of transportation kept you from medical appts, meetings, work, or getting things needed for daily living: no In the past 12 mos, have been you worried that your food would run out before you had money to buy more?: never true In the past 12 mos, the food you bought just didn't last and you didn't have money to buy more?: never true Highest level of school completed/degree received: GED or equivalent Smoking Status: Current every day smoker What tobacco products do you use: cigarettes Smoking packs per day: 2 Smoking cigarettes per day: 40.0 How often do you have a drink containing alcohol: monthly or less How many standard drinks containing alcohol do you have on a typical day: 1 or 2 How often do you have six or more drinks on one occasion: Never AUDIT-C Alcohol total score: 1 Non-prescribed substance use: marijuana (any form) Non-prescribed substance use details: occasional marijuana Caffeine: No How often does anyone, including family, friends and others, physically hurt you : never How often does anyone, including family, friends and others, insult or talk down to you: never How often does anyone, including family, friends and others, threaten you with harm: never How often does anyone, including family, friends and others, scream or curse at you: never service: No Exam Const: Vital Signs, click to edit/add: Vital Signs - 24 hr 05/28/24 12:50 05/28/24 13:20 05/28/24 16:02 Temperature 96.7 F L Pulse Rate [Pulse Oximeter] 81 76 79 Respiratory Rate 18 18 18 Blood Pressure [Ri ght Upper Arm] 121/74 126/75 135/85 Pulse Oximetry 98 100 96 Oxygen Delivery Me thod Room Air Room Air Room Air Earl is alert, interactive, no apparent distress. Very pleasant 54-year-old female. Sitting up does seem to cause her some pain in her right side. Pupils are equal round reactive, sclera clear, extraocular muscles intact, no nystagmus. Some of her dentition is missing but otherwise oral mucosa without any evidence of acute mucosal changes, appears to be well-hydrated. Her speech is normal. Neck is supple, no jugular venous distension, no masses. Lungs are clear, good air entry, no wheezing or crackles, no tachypnea. CV regular rate and rhythm, no murmur, normal S1-S2, no S3-S4. Abdomen is soft, she maybe has some mild mid very lateral abdominal pain, difficult goal to say if this is abdominal wall but do not feel any underlying masses. There is certainly no rebound or guarding. Bowel sounds are present. Patient was ambulatory into the ED of her own accord. Documenting provider has reviewed patient's vital signs: yes Course Course ED Course: This patient appears to have a uterine fibroid per her chart records and only other abdominal surgery is a tubal ligation. She still has her appendix, could be urinary system with kidney stone. Overall she seems to be comfortable and does seem to have increased pain with position changes. I do wonder if this could be musculoskeletal. Certainly with her minimal medical care as of late, do think we should proceed with CT abdomen imaging. She has never had a colonoscopy, could have an occult colon mass. The CT imaging as well as a full complement of labs will be obtained for full diagnostic evaluation. Urinalysis is already been obtained. Her creatinine and kidney function was just normal back at the end of April. She declines anything for pain at this time. She is not having any nausea. Of note she does appear to be glucose intolerant with a hemoglobin A1c of 6% during her hospitalization for her recent peripheral vertigo at the end of April. Reevaluation(s) Time of Reevaluation #1: 15:35 Reevaluation #1: Did review with Earl the CT findings. She has probably area on the cecum of epiploic appendagitis. Did my best to explain this to her. She will have a short interval follow-up with the surgeon tomorrow. We did review the secondary findings of the left renal mass that is concerning for renal cell carcinoma, underlying kidney stones. I did have to take leave to take the phone call from Urology but did follow-up with her. By the time I was back in to see her, urology at already called her. She will be seeing Dr. Valentino Gutiérrez on June 18 at 11:10 a.m. in [place] at [address] images had already been pushed up to [facility]. Consultations Consultation #1: Have reviewed this with the general surgeon Dr. Marie. She did review the CT. She would like to see the patient in short follow-up, have called the clinic in spoken with Negrita WHITE. They will see her, check-in time at 2:00 p.m.. Negrita is aware to order a CBC and CRP for the surgeon for tomorrow. Time: 15:31 Consultation #2: Did speak with Dr. Pop from [facility] on-call. They will get this patient in to Urology, the kidney stone as well as this lesion which has a high chance of being a renal cell carcinoma will be addressed. They will get him to 1 of the partners that does do partial nephrectomy. They will contact her outpatient. Time: 15:40 Vital Signs Vital signs: Initial Vital Signs Temperature 96.7 F L 05/28/24 12:50 Temperature Source Temporal Artery Scan 05/28/24 12:50 Pulse Rate 81 05/28/24 12:50 Pulse Rhythm Regular 05/28/24 12:50 Respiratory Rate 18 05/28/24 12:50 Blood Pressure 121/74 05/28/24 12:50 Blood Pressure Mean 89 05/28/24 12:50 Blood Pressure Position Supine 05/28/24 12:50 Pulse Oximetry 98 05/28/24 12:50 Oxygen Delivery Method Room Air 05/28/24 12:50 Vital Signs Temperature 96.7 F L 05/28/24 12:50 Pulse Rate 81 05/28/24 12:50 Respiratory Rate 18 05/28/24 12:50 Blood Pressure 121/74 05/28/24 12:50 Pulse Oximetry 98 05/28/24 12:50 Oxygen Delivery Method Room Air 05/28/24 12:50 Temperature 96.7 F L 05/28/24 12:50 Pulse Rate 79 05/28/24 16:02 Respiratory Rate 18 05/28/24 16:02 Blood Pressure 135/85 05/28/24 16:02 Pulse Oximetry 96 05/28/24 16:02 Oxygen Delivery Method Room Air 05/28/24 16:02 Medical Decision Making Lab Data Lab results reviewed: Yes I reviewed the patient's lab results Labs: Lab Results 05/28/24 05/28/24 Range/Units 13:00 13:35 WBC 9.82 (4.50-11.00) K/uL RBC 4.62 (4.00-5.20) m/uL Hgb 13.5 (12.0-16.0) gm/dL Hct 41.1 (33.0-51.0) % MCV 89 (80-100) fL MCH 29 (26-34) pg MCHC 33 (32-36) gm/dL RDW Coeff of Gila 12.5 (11.5-15.5) % Plt Count 166 (140-440) K/uL Neut % (Auto) 67.9 (42.0-72.0) % Lymph % (Auto) 20.7 (20-44) % Barrow % (Auto) 8.7 (0.0-11.0) % Eos % (Auto) 2.3 (0.0-7.0) % Baso % (Auto) 0.3 (0.0-3.0) % Neut # (Auto) 6.67 (1.7-7.0) K/uL Lymph # (Auto) 2.03 (0.90-2.90) K/uL Barrow # (Auto) 0.90 (0.00-0.90) K/UL Eos # (Auto) 0.23 (0.00-0.50) K/uL Baso # (Auto) 0.03 (0.00-0.30) K/uL Abs Immat Gran (auto) 0.01 (0.00-0.30) K/uL Imm/Tot Granulo (auto) 0.1 % Lactate 1.3 (0.5-1.9) mmol/L Direct Bilirubin 0.4 (0.0-0.5) mg/dL C-Reactive Protein 4.8 H (0.5-1.0) mg/dL Lipase 83 (23-300) U/L Urine Color Yellow (Yellow) Urine Appearance Clear (Clear) Urine pH 6.0 (5.0-8.5) Ur Specific Severance 1.025 (1.000-1.030) Urine Protein Negative (Negative) Urine Glucose (UA) Negative (Negative) Urine Ketones Negative (Negative) Urine Blood 2+ A (Negative) Urine Nitrite Negative (Negative) Urine Bilirubin Negative (Negative) Urine Urobilinogen 0.2 (0.2-1.0) Ur Leukocyte Esterase Negative (Negative) Urine RBC 10-25 A (0-2) Urine WBC 2-5 (0-5) Ur Squamous Epith Cells Few (None-Few) Urine Bacteria Few A (None) Urine Mucus Few A (None) Imaging Data CT scan - abdomen: Attestation: I have reviewed the pertinent imaging results. Radiologist's impression: Patient: EARL AUSTIN Facility:?[facility] Patient ID:?[id number] Site Patient ID:?[id number]. Site :?[id number] Study:?CT-Abdomen/Pelvis W ISOVUE 370-05/28/2024 2:10:57 PM Ordering Physician:Leroy Dumont Final Report: INDICATION: Right-sided abdominal pain. TECHNIQUE: CT abdomen and pelvis acquired with 100 cc Isovue 370 IV contrast. COMPARISON: CT abdomen and pelvis 10/17/2013. FINDINGS: Lower chest: Unremarkable. Liver: Unremarkable. Normal in size and attenuation. No suspicious masses. Gallbladder and bile ducts: Unremarkable. No stones or inflammation. No biliary dilatation. Pancreas: Unremarkable. No mass or inflammation. Spleen: Unremarkable. Normal in size. No masses. Adrenal glands: Unremarkable. No nodules. Kidneys: Bilateral nonobstructing nephroliths, the largest in the inferior pole of the left kidney measuring 1.5 x 1.4 centimeters (2/60) left subcentimeter hypodense lesions, likely cysts. Left extrarenal pelvis. There is a left upper pole enhancing renal mass measuring 2 x 2 by 1.9 centimeters (2/36, 4/100), new compared to prior. GI tract: No obstruction. Vasculature: Mild aortoiliac atherosclerosis. Mesenteric arteries are patent. Lymph nodes: No lymphadenopathy. Peritoneum/Abdominal Wall: Soft tissue stranding along the distal cecum/ascending colon with a hyperdense focus within the area of stranding (05/28/2024). Pelvis: Enlarged fibroid uterus, which is increased in size when compared to 10/17/2013 Bones: Unremarkable for age. IMPRESSION: Soft tissue stranding along the distal cecum/ascending colon with a hyperdense focus within this area of soft tissue stranding, likely epiploic appendagitis with central vascular pedicle. Cecal diverticulitis is less likely considering lack of diverticula elsewhere. Left upper pole enhancing renal mass, concerning for renal cell carcinoma. Please note that all CT scans at this facility use dose modulation, iterative reconstruction, and/or weight-based dosing when appropriate to reduce radiation dose to as low as reasonably achievable. Dictated by More Roach MD @ 05/28/2024 2:37:13 PM (Electronic Signature) Discharge Plan Discharge Clinical Impression: Epiploic appendagitis, Kidney calculi, Asymptomatic microscopic hematuria, Left kidney mass Patient Disposition: Home, Self-Care Condition: Stable Instructions: Kidney Stones (ED), Hematuria (ED), Epiploic Appendagitis (ED) Additional Instructions: Can use Tylenol or ibuprofen per bottle directions as needed for pain. Patient sometimes can develop fever with epiploic appendagitis. If you have any conc erns with her status, please seek re-evaluation in the interim. Otherwise, you will have a follow-up appointment with check-in time at 2:00 p.m. at [facility] where you will see Dr. Marie. Expect to have blood drawn at that visit as well for recheck. Your urology appointment will be on June 18 at 11:[address] Valentino Gutiérrez, [address] [facility] in [place]. Highly encourage you to work on smoking cessation, schedule a clinic appointment with 1 of the primary care providers for further assistance on this if needed. Activity Level: Activity as Tolerated Prescriptions: No Action rosuvastatin 20 mg tablet 20 mg PO DAILY Qty: 30 2RF aspirin 81 mg tablet,delayed release (DR/EC) 81 mg PO DAILY Qty: 100 2RF ondansetron 8 mg tablet,disintegrating 8 mg PO Q8H PRNQty: 15 0RF Follow Up/Referrals: Morelia Yepez PA-C [Primary Care Provider] - Stand Alone Forms: [employer] Info Instructions
[2024-05-28 12:50] VITALS: BP 121/74; PULSE 81; RESP 18; TEMP 35.9; O2SAT 98; BMI 26.2
--- NOTE | 2024-05-28 13:14 | CRLHL7_ITS ---
For Patients: As a result of the Century Cures Act, medical imaging exams and procedure reports are released immediately into your electronic medical record. You may view this report before your referring provider. If you have questions, please contact your health care provider. INDICATION: Right-sided abdominal pain. TECHNIQUE: CT abdomen and pelvis acquired with 100 cc Isovue 370 IV contrast. COMPARISON: CT abdomen and pelvis 10/17/2013. FINDINGS: Lower chest: Unremarkable. Liver: Unremarkable. Normal in size and attenuation. No suspicious masses. Gallbladder and bile ducts: Unremarkable. No stones or inflammation. No biliary dilatation. Pancreas: Unremarkable. No mass or inflammation. Spleen: Unremarkable. Normal in size. No masses. Adrenal glands: Unremarkable. No nodules. Kidneys: Bilateral nonobstructing nephroliths, the largest in the inferior pole of the left kidney measuring 1.5 x 1.4 centimeters (2/60) left subcentimeter hypodense lesions, likely cysts. Left extrarenal pelvis. There is a left upper pole enhancing renal mass measuring 2 x 2 by 1.9 centimeters (2/36, 4/100), new compared to prior. GI tract: No obstruction. Vasculature: Mild aortoiliac atherosclerosis. Mesenteric arteries are patent. Lymph nodes: No lymphadenopathy. Peritoneum/Abdominal Wall: Soft tissue stranding along the distal cecum/ascending colon with a hyperdense focus within the area of stranding (05/28/2024). Pelvis: Enlarged fibroid uterus, which is increased in size when compared to 10/17/2013 Bones: Unremarkable for age. IMPRESSION: Soft tissue stranding along the distal cecum/ascending colon with a hyperdense focus within this area of soft tissue stranding, likely epiploic appendagitis with central vascular pedicle. Cecal diverticulitis is less likely considering lack of diverticula elsewhere. Left upper pole enhancing renal mass, concerning for renal cell carcinoma. Please note that all CT scans at this facility use dose modulation, iterative reconstruction, and/or weight-based dosing when appropriate to reduce radiation dose to as low as reasonably achievable. Dictated by More Roach MD @ 05/28/2024 2:37:13 PM (Electronically Signed)
[2024-05-28 13:20] VITALS: BP 126/75; PULSE 76; RESP 18; O2SAT 100
[2024-05-28 13:28] LABS: Appearance Urine Clear (Clear); Bilirubin Urine Negative (Negative); Blood Urine 2+ (Negative); Color Urine Yellow (Yellow); Glucose Urine Negative (Negative); Ketones Urine Negative (Negative); Leukocyte Esterase Urine Negative (Negative); Nitrite Urine Negative (Negative); Protein Urine Negative (Negative); Specific Gravity Urine 1.025 (1.000-1.030); Urobilinogen Urine 0.2 (0.2-1.0)
[2024-05-28 13:45] LABS: Lactate* 1.3 mmol/L (0.5-1.9)
[2024-05-28 13:50] LABS: Basophils Absolute Auto 0.03 K/uL (0.00-0.30); Basophils Percent Auto 0.3 % (0.0-3.0); Eosinophils Absolute Auto 0.23 K/uL (0.00-0.50); Eosinophils Percent Auto 2.3 % (0.0-7.0); Hematocrit 41.1 % (33.0-51.0); Hemoglobin* 13.5 gm/dL (12.0-16.0); Immature Granulocytes Abs Auto 0.01 K/uL (0.00-0.30); Immature Granulocytes Pct Auto 0.1 %; Lymphocytes Absolute Auto 2.03 K/uL (0.90-2.90); Lymphocytes Percent Auto 20.7 % (20-44); Mean Corpuscular HGB Conc 33 gm/dL (32-36); Mean Corpuscular Hemoglobin 29 pg (26-34); Mean Corpuscular Volume 89 fL (80-100); Monocytes Percent Auto 8.7 % (0.0-11.0); Neutrophils Absolute Auto 6.67 K/uL (1.7-7.0); Neutrophils Percent Auto 67.9 % (42.0-72.0); Platelet Count* 166 K/uL (140-440); RDW Coefficient of Variation % 12.5 % (11.5-15.5); Red Blood Count 4.62 m/uL (4.00-5.20); White Blood Count* 9.82 K/uL (4.50-11.00)
[2024-05-28 13:53] LABS: Slide Review Reflex No
[2024-05-28 13:54] LABS: Bacteria Urine Few; Mucus Urine Few; Squamous Epithelial Cell Urine Few (None-Few)
[2024-05-28 14:16] LABS: Bilirubin Direct* 0.4 mg/dL (0.0-0.5); Lipase* 83 U/L (23-300)
[2024-05-28 14:19] LABS: C Reactive Protein* 4.8 mg/dL (0.5-1.0)
[2024-05-28 16:02] VITALS: BP 135/85; PULSE 79; RESP 18; O2SAT 96
== END 2024-05-28 16:33 | disposition home or self-care (01) ==
PROVIDERS: Emergency Provider Family Medicine; PCP Physician Assistant Medical
DX: K65.9 Peritonitis, unspecified (principal); N20.0 Calculus of kidney; R31.21 Asymptomatic microscopic hematuria
CPT/HCPCS: 36415; 74177; 81001; 82248; 83605; 83690; 85025; 86140; 87086; 99284; 99285; Q9967

== ENCOUNTER 2024-05-29 13:46 | Outpatient (CLI) | payer OTHER, SELFPAY | END 2024-05-29 13:47 | disposition home or self-care (01) | LOC: NFLDREF 06-04 09:34 | PROVIDERS: PCP Physician Assistant Medical; Referring Provider Physician Assistant Medical; Visit Provider Surgery | DX: K63.89 Other specified diseases of intestine (principal) | CPT/HCPCS: 86140 ==